=== PATIENT | female | born 1995 | race Caucasian/White ===

== ENCOUNTER 2022-11-03 13:39 | Emergency (ER) | payer OTHER ==
[2022-11-03 14:15] LABS: Absolute Neutrophil Ct (ANC) 5.36 x10^3/uL (1.4-6.9); BASOPHIL % 0.7 % (0.0-0.4); Basophil (Absolute #) 0.06 x10^3/uL (0-0.4); Eosinophil % 1.8 % (0.00-5.0); Eosinophil (Absolute #) 0.15 x10^3/uL (0-0.5); Hematocrit 34.5 % (35-47); Hemoglobin 11.2 g/dL (12.0-16.0); IMMATURE GRAN # 0.02 x10^3u/L (0.00-0.03); IMMATURE GRAN % 0.2 % (0.00-0.4); Lymphocytes % 25.6 % (24.0-44.0); Mean Cell Volume 85.4 fL (78-100); Mean Corpuscular Hemoglobin 27.7 pg (26-32); Mean Corpuscular Hgb Concent. 32.5 g/dL (32-36); Mean Platelet Volume 9.5 fL (7.5-11.0); Monocyte (Absolute #) 0.52 x10^3/uL (0.0-1.3); Monocytes % 6.3 % (0.0-12.0); Neutrophil % 65.4 % (36.0-66.0); Platelet Count 183 x10^3/uL (150-450); Red Blood Count 4.04 x10^6/uL (4.1-5.4); White Blood Count 8.2 x10^3/uL (4.0-10.5)
--- NOTE | 2022-11-03 14:36 | ERPHSYRPT ---
- History of Present Illness Time Seen by Provider: 11/03/22 14:05 Source: patient Exam Limitations: no limitations Patient Subjective Stated Complaint: -bleeding Triage Nursing Assessment: Patient ambulated back to ED and transferred self to bed. Patient A+O X3. Patient's skin pink, warm and dry. Patient states she is pregant, but unknown how far along. Last period was 09/15/2022. Patient states she was sitting on couch when she felt a "gush" and she stood up and noted her pants had bled through. Patient states she was having lower pelvic cramps. Physician History: Patient is a 26-year-old 2 para 1 AB 0 who presents for the last first menstrual period of September 15, 2022. She was sitting at home at approximately 7 weeks gestation when she felt a gush of blood and developed some lower abdominal cramping and nausea. She reports she has used 2 pads and she is bleeding like a period. Timing/Duration: today Activites at Onset: none Quality: cramping Onset Location: suprapubic Pain Radiation: none Severity of Pain-Max: moderate Severity of Pain-Current: mild Prior abdominal problems: none Sexual intercourse history: non-contributory Associated Symptoms: abdominal pain Allergies/Adverse Reactions: cefaclor [From [facility]] Allergy (Verified 11/03/22 13:48) Home Medications: Sertraline HCl 50 mg [Zoloft 50 mg Tablet] 1 tab PO DAILY 11/03/22 [History] Hx Influenza Vaccination/Date Given: No Hx Pneumococcal Vaccination/Date Given: No Travel Risk - International Travel Have you traveled outside of the country in past 3 weeks: No - Coronavirus Screening Are you exhibiting any of the following symptoms?: No Close contact with a COVID-19 positive Pt in past 14-21 Days: No - Vaccine Status Have you recieved a Covid-19 vaccination: No - Review of Systems Constitutional: No Fever, No Chills Eyes: No Symptoms Ears, Nose, & Throat: No Symptoms Respiratory: No Cough, No Dyspnea Cardiac: No Chest Pain, No Edema, No Syncope Abdominal/Gastrointestinal: Abdominal Pain, No Nausea, No Vomiting, No Diarrhea Genitourinary Symptoms: , Vaginal Bleeding, No Dysuria Musculoskeletal: No Back Pain, No Neck Pain Skin: No Rash Neurological: No Dizziness, No Focal Weakness, No Sensory Changes Psychological: No Symptoms Endocrine: No Symptoms All Other Systems: Reviewed and Negative - Past Medical History Pertinent Past Medical History: Yes Neurological History: No Pertinent History ENT History: No Pertinent History Cardiac History: No Pertinent History Respiratory History: No Pertinent History Endocrine Medical History: No Pertinent History Musculoskeletal History: No Pertinent History GI Medical History: No Pertinent History History: No Pertinent History Psycho-Social History: No Pertinent History Female Reproductive Disorders: No Pertinent History - Past Surgical History Past Surgical History: Yes Neuro Surgical History: No Pertinent History Cardiac: No Pertinent History Respiratory: No Pertinent History Gastrointestinal: No Pertinent History Genitourinary: No Pertinent History Musculoskeletal: No Pertinent History Female Surgical History: No Pertinent History - Social History Smoking Status: Never smoker Exposure to second hand smoke: No Drug Use: none Patient Lives Alone: No - Female History Hx Last Menstrual Period: 09/15/2022 Hx Now: Yes Gestational Age: na - Nursing Vital Signs Nursing Vital Signs: Initial Vital Signs Temperature 98.0 F 11/03/22 13:53 Pulse Rate 88 11/03/22 13:53 Respiratory Rate 18 11/03/22 13:53 Blood Pressure 107/72 11/03/22 13:53 O2 Sat by Pulse Oximetry 99 11/03/22 13:53 Pain Scale Pain Intensity 0 - Physical Exam General Appearance: mild distress, alert Eye Exam: PERRL/EOMI, eyes nml inspection Ears, Nose, Throat Exam: normal ENT inspection, TMs normal, pharynx normal, moist mucous membranes Neck Exam: normal inspection, non-tender, supple, full range of motion Respiratory Exam: normal breath sounds, lungs clear, No respiratory distress Cardiovascular Exam: regular rate/rhythm, normal heart sounds, normal peripheral pulses Gastrointestinal/Abdomen Exam: soft, No tenderness, No mass Pelvic Exam: normal external exam, adnexal tenderness, vaginal bleeding, uterine tenderness, No adnexal mass Back Exam: normal inspection, normal range of motion, No CVA tenderness, No vertebral tenderness Extremity Exam: normal inspection, normal range of motion, pelvis stable Neurologic Exam: alert, oriented x 3, cooperative, boat finisher II-XII nml as tested, normal mood/affect, sensation nml, No motor deficits Skin Exam: normal color, warm, dry Lymphatic Exam: No adenopathy SpO2 Interpretation: normal SpO2: 99 O2 Delivery: Room Air - Course Nursing assessment & vital signs reviewed: Yes - Radiology Ultrasound Exam OB Ultrasound: discussed w/radiologist (Ultrasound shows a subchorionic hemorrhage 6 weeks gestation and viable intrauterine ) Ordered Tests: Active Orders 24 hr Category Date Time Status OB <14 WKS 1ST GESTATION [US] Stat Exams 11/03/22 15:34 Ordered CBC W DIFF Stat Lab 11/03/22 14:10 Completed CULTURE,URINE Stat Lab 11/03/22 14:27 Received HCG, Quantitative (Inhouse) Stat Lab 11/03/22 14:10 Completed UA W/RFX UR CULTURE Stat Lab 11/03/22 14:27 Completed Lab/Rad Data: Laboratory Result Diagrams 11/03/22 14:10 Laboratory Results 11/03/22 11/03/22 11/03/22 Range/Units 14:27 14:10 14:10 WBC 8.2 (4.0-10.5) x10^3/uL RBC 4.04 L (4.1-5.4) x10^6/uL Hgb 11.2 L (12.0-16.0) g/dL Hct 34.5 L (35-47) % MCV 85.4 (78-100) fL MCH 27.7 (26-32) pg MCHC 32.5 (32-36) g/dL RDW 13.0 (11.5-14.0) % Plt Count 183 (150-450) x10^3/uL MPV 9.5 (7.5-11.0) fL Gran % 65.4 (36.0-66.0) % Immature Gran % (Auto) 0.2 (0.00-0.4) % Nucleat RBC Rel Count 0.0 (0.00-0.1) % Eos # (Auto) 0.15 (0-0.5) x10^3/uL Immature Gran # (Auto) 0.02 (0.00-0.03) x10^3u/L Absolute Lymphs (auto) 2.10 (1.0-4.6) x10^3/uL Absolute Monos (auto) 0.52 (0.0-1.3) x10^3/uL Absolute Nucleated RBC 0.00 (0.00-0.01) x10^3u/L Lymphocytes % 25.6 (24.0-44.0) % Monocytes % 6.3 (0.0-12.0) % Eosinophils % 1.8 (0.00-5.0) % Basophils % 0.7 (0.0-0.4) % Absolute Granulocytes 5.36 (1.4-6.9) x10^3/uL Basophils # 0.06 (0-0.4) x10^3/uL Beta HCG, Quant mIU/ml Urine Color Yellow (Yellow) Urine Appearance Clear (Clear) Urine pH 6.0 (4.6-8.0) Ur Specific Reese >=1.030 A (1.005-1.030) Urine Protein Trace A (Negative) Urine Glucose (UA) Negative (Negative) mg/dL Urine Ketones Negative (Negative) Urine Blood Large A (Negative) Urine Nitrite Negative (Negative) Urine Bilirubin Negative (Negative) Urine Urobilinogen 0.2 (0.2) mg/dL Ur Leukocyte Esterase Small A (Negative) U Hyaline Cast (Auto) NONE SEEN (0-2) /LPF Urine Microscopic RBC >100 A (0-5) /HPF Urine Microscopic WBC 21-50 A (0-5) /HPF Ur Epithelial Cells Rare (None Seen) /HPF Urine Bacteria None Seen (None Seen) /HPF Urine Culture Reflexed YES (NO) Rh Factor POSITIVE 11/03/22 Range/Units 14:10 WBC (4.0-10.5) x10^3/uL RBC (4.1-5.4) x10^6/uL Hgb (12.0-16.0) g/dL Hct (35-47) % MCV (78-100) fL MCH (26-32) pg MCHC (32-36) g/dL RDW (11.5-14.0) % Plt Count (150-450) x10^3/uL MPV (7.5-11.0) fL Gran % (36.0-66.0) % Immature Gran % (Auto) (0.00-0.4) % Nucleat RBC Rel Count (0.00-0.1) % Eos # (Auto) (0-0.5) x10^3/uL Immature Gran # (Auto) (0.00-0.03) x10^3u/L Absolute Lymphs (auto) (1.0-4.6) x10^3/uL Absolute Monos (auto) (0.0-1.3) x10^3/uL Absolute Nucleated RBC (0.00-0.01) x10^3u/L Lymphocytes % (24.0-44.0) % Monocytes % (0.0-12.0) % Eosinophils % (0.00-5.0) % Basophils % (0.0-0.4) % Absolute Granulocytes (1.4-6.9) x10^3/uL Basophils # (0-0.4) x10^3/uL Beta HCG, Quant 95391 mIU/ml Urine Color (Yellow) Urine Appearance (Clear) Urine pH (4.6-8.0) Ur Specific Reese (1.005-1.030) Urine Protein (Negative) Urine Glucose (UA) (Negative) mg/dL Urine Ketones (Negative) Urine Blood (Negative) Urine Nitrite (Negative) Urine Bilirubin (Negative) Urine Urobilinogen (0.2) mg/dL Ur Leukocyte Esterase (Negative) U Hyaline Cast (Auto) (0-2) /LPF Urine Microscopic RBC (0-5) /HPF Urine Microscopic WBC (0-5) /HPF Ur Epithelial Cells (None Seen) /HPF Urine Bacteria (None Seen) /HPF Urine Culture Reflexed (NO) Rh Factor - Progress Progress: unchanged Air Movement: good Blood Culture(s) Obtained: No Antibiotics given: No Medical Desision Making - Discussion of managment Reviewed:: Test results (Test results were discussed with the patient and her ) - Diagnostic Testing Diagnostic test were ordered, analyzed, and reviewed by me: Yes Radiological Interpretation: Discussed w/ radiologist - Risk of complications Low Risk: Low risk of morbidity from additional dx testing or treatment - Departure Departure Disposition: Home Clinical Impression: Subchorionic hemorrhage in first trimester Condition: Stable Critical Care Time: No Referrals: KAE ALBARRAN MD [ACTIVE STAFF] - Follow up/PCP as directed Instructions: Bleeding in Early (DC)
[2022-11-03 14:43] LABS: Appearance Clear (Clear); Bilirubin Negative (Negative); Blood Large (Negative); Glucose, Urine Negative (Negative); Ketones Negative (Negative); Leukocyte Esterase Small (Negative); Nitrite Negative (Negative); Protein,Urine Dip Trace (Negative); Specific Gravity >=1.030 (1.005-1.030); Urobilinogen 0.2 mg/dL (0.2)
[2022-11-03 14:46] LABS: ADD URINE CULTURE? YES (NO); Bacteria None Seen /HPF (None Seen); Epithelial Cells Rare /HPF (None Seen); Hyaline Casts NONE SEEN /LPF (0-2); RBC >100 /HPF (0-5); WBC 21-50 /HPF (0-5)
[2022-11-03 18:00] VITALS: BP 98/60; PULSE 74; O2SAT 98
--- NOTE | 2022-11-03 19:50 | XRAY ---
Indication: Vaginal bleeding. Two-dimensional transabdominal and transvaginal early OB ultrasound performed. Comparison: None Single intrauterine gestational sac with presence of a single pole and yolk sac. Mean crown-rump length measures 0.35 cm corresponding to 6 weeks 0 days. heart rate 118 BPM. 4.0 x 2.8 x 3.6 cm subchorionic heterogeneous echogenicity, probable blood products. Cervix is closed. Left and right ovaries are sonographically unremarkable. No suspicious adnexal mass or free fluid. Impression: Single viable intrauterine measuring 6 weeks 0 days. Expected date of confinement is June 29, 2023. Heterogeneous subchorionic echogenicity as detailed, probable blood products. Comment: Preliminary report was given.
== END 2022-11-03 18:00 | disposition home or self-care (01) ==
LOC: ED 13:39
DX: O46.8X1 Other antepartum hemorrhage, first trimester (principal); Z3A.01 Less than 8 weeks gestation of pregnancy; R10.2 Pelvic and perineal pain; Z79.899 Other long term (current) drug therapy; Z28.310 Unvaccinated for COVID-19
CPT/HCPCS: 36415; 76801; 81001; 84702; 85025; 86901; 87086; 99283

== ENCOUNTER 2023-03-04 11:46 | Emergency (ER) | payer OTHER ==
--- NOTE | 2023-03-04 12:16 | ERPHSYRPT ---
- History of Present Illness Time Seen by Provider: 03/04/23 12:00 Source: patient Exam Limitations: no limitations Patient Subjective Stated Complaint: Pt states "I am and I have this vein in my right leg and it did it with my last as well, I have a vein that will swell and hurt after a day of work." Triage Nursing Assessment: Pt presented alert and oriented X 3, skin pwd. PT ambulates with an upright steady gait, able to speak in clear full sentences. Pt has swollen vein in her right leg. Physician History: Patient is a 27-year-old female 23 weeks presents to our ED as a referral from her [facility] physician for a ultrasound to rule out DVT of the right lower extremity. Patient states that she has a large varicose vein in the right lower extremity that tends to swell during long days at work. Patient states she is on her feet on concrete surface during most of the day while working and after work observes that the vein is swollen and tender. Patient had similar experience during her last . Patient states she wears compressive garment upper lower extremity but still experiences this large varicose vein. Patient voiced her finding and concerns to Dr. Pickering who sent patient to our ED for an evaluation and to rule out DVT. Patient otherwise feels well. No chest pain or shortness of breath. No nausea vomiting or diaphoresis. Symptoms are mild to moderate in intensity. Symptoms are worse during prolonged periods of standing. Symptoms improved at rest while laying flat. Patient is otherwise healthy. She voices no other complaints or concerns at this time. Portions of this note were created with voice recognition technology. There may be grammatical, spelling, punctuation or sound alike errors Timing/Duration: yesterday Severity: moderate Modifying Factors: Improves With: nothing Associated Symptoms: denies symptoms Allergies/Adverse Reactions: cefaclor [From [facility]] Allergy (Verified 11/03/22 13:48) Home Medications: Vit37/Iron/Folic Acid [Prenata Chewable Tablet] 1 each PO DAILY 03/04/23 [History] Sertraline HCl 50 mg [Zoloft 50 mg Tablet] 50 mg PO DAILY 03/04/23 [History] Hx Tetanus, Diphtheria Vaccination/Date Given: No Hx Influenza Vaccination/Date Given: No Hx Pneumococcal Vaccination/Date Given: No Immunizations Up to Date: Yes Travel Risk - International Travel Have you traveled outside of the country in past 3 weeks: No - Coronavirus Screening Are you exhibiting any of the following symptoms?: No Close contact with a COVID-19 positive Pt in past 14-21 Days: No - Vaccine Status Have you recieved a Covid-19 vaccination: No - Review of Systems Constitutional: No Symptoms, No Fever, No Chills Eyes: No Symptoms Ears, Nose, & Throat: No Symptoms Respiratory: No Symptoms, No Cough, No Dyspnea Cardiac: No Symptoms, No Chest Pain, No Edema, No Syncope Abdominal/Gastrointestinal: No Symptoms, No Abdominal Pain, No Nausea, No Vomiting, No Diarrhea Genitourinary Symptoms: No Symptoms, No Dysuria Musculoskeletal: No Symptoms, No Back Pain, No Neck Pain Skin: No Symptoms, No Rash Neurological: No Symptoms, No Dizziness, No Focal Weakness, No Sensory Changes Psychological: No Symptoms Endocrine: No Symptoms Hematologic/Lymphatic: No Symptoms Immunological/Allergic: No Symptoms All Other Systems: Reviewed and Negative - Past Medical History Pertinent Past Medical History: Yes Neurological History: No Pertinent History ENT History: No Pertinent History Cardiac History: No Pertinent History Respiratory History: No Pertinent History Endocrine Medical History: No Pertinent History Musculoskeletal History: No Pertinent History GI Medical History: No Pertinent History History: No Pertinent History Psycho-Social History: No Pertinent History Female Reproductive Disorders: No Pertinent History - Past Surgical History Past Surgical History: Yes Neuro Surgical History: No Pertinent History Cardiac: No Pertinent History Respiratory: No Pertinent History Gastrointestinal: No Pertinent History Genitourinary: No Pertinent History Musculoskeletal: No Pertinent History Female Surgical History: No Pertinent History - Social History Smoking Status: Never smoker Exposure to second hand smoke: No Drug Use: none Patient Lives Alone: No - Female History Hx Last Menstrual Period: 10/16/2022 Hx Now: Yes Gestational Age: 23 W 2 d - Nursing Vital Signs Nursing Vital Signs: Initial Vital Signs Temperature 98.4 F 03/04/23 11:54 Pulse Rate 79 03/04/23 11:54 Respiratory Rate 20 03/04/23 11:54 Blood Pressure 100/60 03/04/23 11:54 O2 Sat by Pulse Oximetry 100 03/04/23 11:54 Pain Scale Pain Intensity 0 - Physical Exam General Appearance: no apparent distress, alert Eye Exam: PERRL/EOMI, eyes nml inspection Ears, Nose, Throat Exam: normal ENT inspection, TMs normal, pharynx normal, moist mucous membranes Neck Exam: normal inspection, non-tender, supple, full range of motion Respiratory Exam: normal breath sounds, lungs clear, airway intact, No respiratory distress Cardiovascular Exam: regular rate/rhythm, normal heart sounds, normal peripheral pulses Gastrointestinal/Abdomen Exam: soft, normal bowel sounds, No tenderness, No mass Back Exam: normal inspection, normal range of motion, No CVA tenderness, No vertebral tenderness Extremity Exam: normal inspection, normal range of motion, pelvis stable Neurologic Exam: alert, oriented x 3, cooperative, normal mood/affect, nml cerebellar function, nml station & gait, sensation nml, No motor deficits Skin Exam: normal color, warm, dry, No rash Lymphatic Exam: No adenopathy SpO2: 100 - Course Nursing assessment & vital signs reviewed: Yes - Radiology Ultrasound Exam Venous Lower Extremity Ultrasound: tele radiology report (Negative for DVT) Ordered Tests: Active Orders 24 hr Category Date Time Status VENOUS UNILAT/LIMITED EXTREMIT [US] Stat Exams 03/04/23 12:09 Completed - Progress Progress: unchanged, improved Progress Note: Patient a 27-year-old female presents to our ED as a referral from her [facility] physician for an ultrasound to rule out DVT of the right lower extremity. Patient advised that she has been experiencing a varicose vein that enlarges when she stands for prolonged periods of time. Physical exam reveals a varicose vein of the right lower extremity proximal and medial. Some tenderness more so when the pain becomes congested. Ultrasound of the right lower extremity negative for DVT. We contacted patient's referring doctor and informed them that ultrasound of the right lower extremity was negative for DVT. No indication for further work-up. Will discharge home. Patient agrees to follow-up with her primary care doctor for reevaluation. Complexity of problem addressed is low acute uncomplicated Complex of data reviewed and analyzed is limited. Dr. Cosby reviewed the ultrasound report produced by radiology. No DVT observed per radiology report Risk of complication and or risk morbidity/mortality of patient management is minimal. Patient received an ultrasound only. Patient declined pain medication. No indication for further work-up. Portions of this note were created with voice recognition technology. There may be grammatical, spelling, punctuation or sound alike errors Time spent to discharge patient is approximately 15 minutes including phone call to her referring doctor. Vital stable. Plan of care established via shared decision making. She voices no other complaints or concerns at this time. Portions of this note were created with voice recognition technology. There may be grammatical, spelling, punctuation or sound alike errors 03/04/23 13:47 Counseled pt/family regarding: diagnosis, need for follow-up, rad results - Departure Departure Disposition: Home Clinical Impression: Varicose vein of leg, Venous insufficiency Condition: Stable Critical Care Time: No Referrals: MANA PICKERING DO [ACTIVE STAFF] - Follow up/PCP as directed Additional Instructions: Discharge/Care Plan SURESH HERNANDEZ was seen on 03/04/23 in the Emergency Room. The patient was counseled regarding Diagnosis,Lab results, Imaging studies, need for follow up and when to return to the Emergency Room. Prescriptions given: Discharge Note I have spoken with the patient and/or caregivers. I have explained the patient's condition, diagnosis and treatment plan based on the information available to me at this time. I have answered the patient's and/or caregiver's questions and addressed any concerns. The patient and/or caregivers have as good understanding of the patient's diagnosis, condition and treatment plan as can be expected at this point. The vital signs have been stable. The patient's condition is stable and appropriate for discharge from the emergency department. The patient will pursue further outpatient evaluation with the primary care physician or other designated or consulting physician as outlined in the discharge instructions. The patient and/or caregivers are agreeable to this plan of care and follow-up instructions have been explained in detail. The patient and/or caregivers have received these instruction. The patient/and or caregivers are aware that any significant change in condition or worsening of symptoms should prompt an immediate return to this or the closest emergency department or call 911.
--- NOTE | 2023-03-04 12:52 | XRAY ---
Indication: Pain. DVT. Two-dimensional sonogram and color Doppler imaging of the major venous vessels of the right leg performed. Comparison: None No thrombus seen in the examined deep venous vessels of the right leg including greater saphenous vein. Veins demonstrate normal compressibility. Venous waveforms are normal with and without augmentation. Incidental mild subcutaneous venous varicosities throughout the right leg. Impression: Right leg negative for DVT. Incidental subcutaneous venous varicosities.
[2023-03-04 12:56] VITALS: BP 104/60; PULSE 74
[2023-03-04 13:52] VITALS: O2SAT 100
== END 2023-03-04 14:06 | disposition home or self-care (01) ==
LOC: ED 11:46
DX: O22.02 Varicose veins of lower extremity in pregnancy, second trimester (principal); Z3A.23 23 weeks gestation of pregnancy; I87.2 Venous insufficiency (chronic) (peripheral); Z79.899 Other long term (current) drug therapy; Z28.310 Unvaccinated for COVID-19
CPT/HCPCS: 93971; 99282

== ENCOUNTER 2023-06-24 01:18 | Inpatient (IN) | payer OTHER ==
[2023-06-24] MEDS ORDERED: BRETHINE 1 MG/ML SQ PRN (16:00)
[2023-06-24] MEDS ORDERED: STADOL 2 MG IV PRN (16:00)
[2023-06-24] MEDS ORDERED: Zofran 4 MG/2 ML VIAL IV PRN (16:00)
[2023-06-24 16:52] LABS: Absolute Neutrophil Ct (ANC) 8.74 x10^3/uL (1.4-6.9); BASOPHIL % 0.3 % (0.0-0.4); Basophil (Absolute #) 0.03 x10^3/uL (0-0.4); Eosinophil % 0.5 % (0.00-5.0); Eosinophil (Absolute #) 0.06 x10^3/uL (0-0.5); Hematocrit 24.7 % (35-47); Hemoglobin 7.8 g/dL (12.0-16.0); IMMATURE GRAN # 0.05 x10^3u/L (0.00-0.03); IMMATURE GRAN % 0.4 % (0.00-0.4); Lymphocyte (Absolute #) 1.93 x10^3/uL (1.0-4.6); Mean Cell Volume 77.9 fL (78-100); Mean Corpuscular Hemoglobin 24.6 pg (26-32); Mean Corpuscular Hgb Concent. 31.6 g/dL (32-36); Mean Platelet Volume 10.4 fL (7.5-11.0); Monocyte (Absolute #) 0.53 x10^3/uL (0.0-1.3); Monocytes % 4.7 % (0.0-12.0); Neutrophil % 77.1 % (36.0-66.0); Platelet Count 201 x10^3/uL (150-450); Red Blood Count 3.17 x10^6/uL (4.1-5.4); Red Cell Distribution Width 14.6 % (11.5-14.0); White Blood Count 11.3 x10^3/uL (4.0-10.5)
[2023-06-24] MEDS: CYTOTEC PO SCH ×3 (16:59→23:20)
[2023-06-24 18:55] LABS: ABO TYPING O; Antibody Screen NEGATIVE (NEGATIVE); RH TYPING POSITIVE
[2023-06-24 19:09] LABS: Amphetamine,Urine NEGATIVE (NEGATIVE); Barbiturate,Urine NEGATIVE (NEGATIVE); Benzodiazepine,Urine NEGATIVE (NEGATIVE); Cocaine,Urine NEGATIVE (NEGATIVE); Methadone,Urine NEGATIVE (NEGATIVE); Opiate,Urine NEGATIVE (NEGATIVE); PCP,Urine NEGATIVE (NEGATIVE); THC,Urine POSITIVE (NEGATIVE)
[2023-06-25] MEDS ORDERED: Lactated Ringers 2,000 ML IV ONE (01:20)
[2023-06-25] MEDS ORDERED: FENTANYL 2 MCG-BUPIV 0.125%-NS 250 ML Epidur 250 ML EPIDURAL ONE (01:48)
[2023-06-25] MEDS ORDERED: Lactated Ringers 1,000 ML IV ONE (06:00)
[2023-06-25] MEDS ORDERED: FENTANYL 2 MCG-BUPIV 0.125%-NS 250 ML Epidur 250 ML EPIDURAL SCH (06:00)
[2023-06-25] MEDS ORDERED: PITOCIN 30 UNITS/ LR 500 ML 30 UNITS/500 ML PLAST..BAG IV SCH ×2 (06:00)
[2023-06-25] MEDS ORDERED: Ephedrine Sulfate 50 MG/ML IV PRN (06:00)
[2023-06-25] MEDS ORDERED: Lactated Ringers 1,000 ML IV SCH (06:00)
[2023-06-25] MEDS: TYLENOL EXTRA STRENGTH 500 MG PO PRN (11:22)
[2023-06-25] MEDS ORDERED: Adacel Vial IM ONE (12:00)
[2023-06-25] MEDS ORDERED: Mylicon 80MG PO PRN (12:00)
[2023-06-25] MEDS ORDERED: TUCKS TP PRN (12:00)
[2023-06-25] MEDS ORDERED: LANSINOH 40 GM TOP PRN (12:00)
[2023-06-25] MEDS ORDERED: Dermoplast Spray TP PRN (12:00)
[2023-06-25] MEDS ORDERED: TYLENOL EXTRA STRENGTH 500 MG PO PRN (12:00)
[2023-06-25] MEDS ORDERED: Sodium Chloride 0.9% 1000 ML 1,000 ML ONE (12:29)
[2023-06-25] MEDS ORDERED: CLARITIN 10 MG PO PRN (14:48)
[2023-06-25] MEDS ORDERED: BENADRYL 50 MG/ML IV PRN (14:48)
[2023-06-25] MEDS ORDERED: Nubain 10 MG/ML IV PRN (14:48)
[2023-06-25] MEDS ORDERED: HOLD NARCOTIC ANALGESICS AND SEDATIVES X24 HR MC PRN (14:48)
[2023-06-25] MEDS ORDERED: DEMEROL 50 MG IV PRN (14:48)
[2023-06-25] MEDS ORDERED: PERCOCET TABLET 5/325MG PO PRN (14:48)
[2023-06-25] MEDS ORDERED: Dextrose 5%-Lr IV Solution 1000 ML 1,000 ML IV SCH (15:00)
[2023-06-25] MEDS ORDERED: CLINDAMYCIN-D5W 900 MG/50 ML*** 900 MG/50 ML BAG IV SCH (15:00)
[2023-06-25] MEDS ORDERED: Zithromax 500 MG/ 250 ML NaCl Premix 500 MG/250 ML IVPB IV SCH (15:00)
[2023-06-25] MEDS ORDERED: Reglan 10 MG/2 ML IV SCH (15:00)
[2023-06-25] MEDS ORDERED: Pepcid 20 MG VIAL IV SCH (15:00)
[2023-06-25] MEDS ORDERED: SOD CITRATE-CITRIC ACID SOLN PO SCH (15:00)
[2023-06-25] MEDS ORDERED: EXPAREL 133 MG/10 ML VIAL IJ ONE (15:07)
[2023-06-25 15:16] LABS: INR 0.92 (0.8-3.0); PROTIME 10.1 SECONDS (9.4-12.5)
[2023-06-25] MEDS ORDERED: CEFAZOLIN 2 GM-D5W BAG** 2 GM/50 ML ML IV SCH (15:30)
[2023-06-25] MEDS: Docusate Sodium 100 MG PO SCH ×2 (20:58→23:54)
[2023-06-25 21:02] LABS: Absolute Neutrophil Ct (ANC) 12.34 x10^3/uL (1.4-6.9); BASOPHIL % 0.3 % (0.0-0.4); Basophil (Absolute #) 0.05 x10^3/uL (0-0.4); Eosinophil % 0.1 % (0.00-5.0); Eosinophil (Absolute #) 0.02 x10^3/uL (0-0.5); Hematocrit 24.9 % (35-47); Hemoglobin 7.5 g/dL (12.0-16.0); IMMATURE GRAN # 0.07 x10^3u/L (0.00-0.03); IMMATURE GRAN % 0.5 % (0.00-0.4); Lymphocyte (Absolute #) 1.32 x10^3/uL (1.0-4.6); Lymphocytes % 9.2 % (24.0-44.0); Mean Cell Volume 80.3 fL (78-100); Mean Corpuscular Hemoglobin 24.2 pg (26-32); Mean Corpuscular Hgb Concent. 30.1 g/dL (32-36); Mean Platelet Volume 10.1 fL (7.5-11.0); Monocyte (Absolute #) 0.52 x10^3/uL (0.0-1.3); Monocytes % 3.6 % (0.0-12.0); Neutrophil % 86.3 % (36.0-66.0); Platelet Count 178 x10^3/uL (150-450); Red Cell Distribution Width 14.9 % (11.5-14.0); White Blood Count 14.3 x10^3/uL (4.0-10.5)
[2023-06-25] MEDS: MOTRIN 400 MG PO PRN (23:47)
[2023-06-26] MEDS: TYLENOL EXTRA STRENGTH 500 MG PO PRN ×2 (02:49→19:55)
[2023-06-26 04:43] LABS: Absolute Neutrophil Ct (ANC) 10.04 x10^3/uL (1.4-6.9); BASOPHIL % 0.4 % (0.0-0.4); Basophil (Absolute #) 0.05 x10^3/uL (0-0.4); Eosinophil % 0.8 % (0.00-5.0); Hematocrit 24.1 % (35-47); Hemoglobin 7.4 g/dL (12.0-16.0); IMMATURE GRAN # 0.08 x10^3u/L (0.00-0.03); IMMATURE GRAN % 0.6 % (0.00-0.4); Lymphocyte (Absolute #) 2.15 x10^3/uL (1.0-4.6); Lymphocytes % 16.2 % (24.0-44.0); Mean Cell Volume 78.2 fL (78-100); Mean Corpuscular Hgb Concent. 30.7 g/dL (32-36); Mean Platelet Volume 10.3 fL (7.5-11.0); Monocyte (Absolute #) 0.86 x10^3/uL (0.0-1.3); Monocytes % 6.5 % (0.0-12.0); Neutrophil % 75.5 % (36.0-66.0); Platelet Count 191 x10^3/uL (150-450); Red Blood Count 3.08 x10^6/uL (4.1-5.4); Red Cell Distribution Width 15.1 % (11.5-14.0); White Blood Count 13.3 x10^3/uL (4.0-10.5)
[2023-06-26] MEDS: MOTRIN 400 MG PO PRN ×2 (06:31→20:48)
--- NOTE | 2023-06-26 08:22 | PCM.NOTE ---
Date and Time: 06/26/23819 Subjective Assessment: ppd 1 sp pt resting in bed doing well able to ambulate and tolerate diet. vss afebrile abd; soft uterus; firm lochia; mild hgb;7.3 a/p sp ppd 1 with physiologic anemia stable hgb anticipate discharge tomorrow OBJECTIVE DATA Vital Signs: Vital Signs - 24 hr Temp Pulse Resp BP BP Pulse Ox 06/26/23 05:00 98.4 F 67 16 90/54 98 06/25/23 21:00 98.7 F 85 16 103/63 97 06/25/23 19:00 97.9 F 60 18 102/61 99 06/25/23 17:15 98.0 F 78 16 112/57 98 06/25/23 17:00 98.0 F 78 16 107/55 98 06/25/23 13:30 67 16 120/66 98 06/25/23 13:15 71 16 116/65 97 06/25/23 13:00 71 16 116/65 97 06/25/23 12:45 71 16 116/65 97 06/25/23 12:30 71 16 111/61 97 06/25/23 12:15 71 16 96/62 97 06/25/23 12:00 98.0 F 74 16 96/62 97 06/25/23 11:00 97.7 F 72 16 104/55 06/25/23 10:30 74 16 06/25/23 10:15 75 16 104/55 06/25/23 10:00 98.0 F 69 16 100 06/25/23 09:45 70 16 106/56 06/25/23 09:30 71 16 109/58 06/25/23 09:15 66 16 109/58 100 06/25/23 09:00 64 16 90/52 99 06/25/23 08:45 63 16 90/52 99 06/25/23 08:30 62 16 90/52 98 Pain Assessment - Last Documented Pain Intensity [Lower] 0 Pain Intensity 6 Pain Scale Used 0-10 Pain Scale Intake and Output: Intake & Output 06/23/23 06/24/23 06/25/23 06/26/23 11:59 11:59 11:59 11:59 Intake Total 2150 800 Output Total 400 Balance 1750 800 Weight 87.09 kg Lab Results: Lab Results-Last 24 Hours 06/25/23 06/25/23 06/26/23 Range/Units 21:00 Unknown 04:23 WBC 14.3 H 13.3 H (4.0-10.5) x10^3/uL RBC 3.10 L 3.08 L (4.1-5.4) x10^6/uL Hgb 7.5 L 7.4 L (12.0-16.0) g/dL Hct 24.9 L 24.1 L (35-47) % MCV 80.3 78.2 (78-100) fL MCH 24.2 L 24.0 L (26-32) pg MCHC 30.1 L 30.7 L (32-36) g/dL RDW 14.9 H 15.1 H (11.5-14.0) % Plt Count 178 191 (150-450) x10^3/uL MPV 10.1 10.3 (7.5-11.0) fL Gran % 86.3 H 75.5 H (36.0-66.0) % Immature Gran % (Auto) 0.5 H 0.6 H (0.00-0.4) % Nucleat RBC Rel Count 0.0 0.0 (0.00-0.1) % Eos # (Auto) 0.02 0.10 (0-0.5) x10^3/uL Immature Gran # (Auto) 0.07 H 0.08 H (0.00-0.03) x10^3u/L Absolute Lymphs (auto) 1.32 2.15 (1.0-4.6) x10^3/uL Absolute Monos (auto) 0.52 0.86 (0.0-1.3) x10^3/uL Absolute Nucleated RBC 0.00 0.00 (0.00-0.01) x10^3u/L Lymphocytes % 9.2 L 16.2 L (24.0-44.0) % Monocytes % 3.6 6.5 (0.0-12.0) % Eosinophils % 0.1 0.8 (0.00-5.0) % Basophils % 0.3 0.4 (0.0-0.4) % Absolute Granulocytes 12.34 H 10.04 H (1.4-6.9) x10^3/uL Basophils # 0.05 0.05 (0-0.4) x10^3/uL PT 10.1 (9.4-12.5) SECONDS INR 0.92 (0.8-3.0) APTT 27.0 (25.1-36.5) SECONDS Assessment/Plan (1) Vaginal delivery Current Visit: Yes Status: Acute Code(s): O80 - ENCOUNTER FOR FULL-TERM UNCOMPLICATED DELIVERY (2) Anemia Current Visit: Yes Status: Acute Code(s): D64.9 - ANEMIA, UNSPECIFIED
[2023-06-26] MEDS: FERREX 150 PO SCH (09:16)
[2023-06-26] MEDS: Docusate Sodium 100 MG PO SCH ×2 (09:17→20:48)
[2023-06-26] MEDS ORDERED: CORTISONE 1% CREAM TP PRN (10:50)
[2023-06-26 14:19] VITALS: RESP 18
[2023-06-26] MEDS ORDERED: NORCO 5/325 MG PO PRN (14:48)
[2023-06-26] MEDS: ZOLOFT 50 MG TABLET PO SCH (20:48)
[2023-06-27] MEDS: TYLENOL EXTRA STRENGTH 500 MG PO PRN ×2 (01:45→10:43)
[2023-06-27 04:54] VITALS: TEMP 98.4
[2023-06-27] MEDS: MOTRIN 400 MG PO PRN (04:58)
--- NOTE | 2023-06-27 07:50 | PCM.NOTE ---
Date and Time: 06/27/23 0749 Subjective Assessment: ppd 2 pt resting in bed and doing well vss afebrile abd; soft uterus; firm lochia; mild a/p sp ppd 2 dc home today should fu office in 3 wks OBJECTIVE DATA Vital Signs: Vital Signs - 24 hr Temp Pulse Resp BP Pulse Ox 06/27/23 02:00 98.4 F 66 18 107/63 97 06/26/23 20:00 98.6 F 70 18 110/54 98 06/26/23 15:00 98.5 F 74 18 101/59 98 06/26/23 09:00 98.4 F 75 18 96/56 99 Pain Assessment - Last Documented Pain Intensity [Lower] 0 Pain Intensity 2 Pain Scale Used 0-10 Pain Scale Intake and Output: Intake & Output 06/24/23 06/25/23 06/26/23 06/27/23 11:59 11:59 11:59 11:59 Intake Total 2150 800 1050 Output Total 400 Balance 6727 207 1319 Weight 87.09 kg Assessment/Plan (1) Vaginal delivery Current Visit: Yes Status: Acute Code(s): O80 - ENCOUNTER FOR FULL-TERM UNCOMPLICATED DELIVERY (2) Anemia Current Visit: Yes Status: Acute Code(s): D64.9 - ANEMIA, UNSPECIFIED
--- NOTE | 2023-06-27 07:53 | PCM.DS ---
Discharge Summary Date of Admission: 06/25/23 01:18 Admitting Physician: MANA KU DO Consults: Consults on Case 06/25/23 06:00 Notify Anesthesia Provider PRN 06/25/23 12:00 Notify Physician ROUTINE 06/25/23 14:49 Notify Anesthesia Provider ROUTINE 06/26/23 00:04 Navigation ONCE Primary Care Provider: CHELY MEYERS Allergies Allergies cefaclor [From Ceclor] Allergy (Verified 06/24/23 20:31) Hospital Summary - Hospital Course Hospital Course: pt admitted on jun 24 at 39 wks gestation for oral cytotec induction and subsequently delivered live baby girl via without complication on jun 25 live baby girl. during period did well able to ambulate and tolerate diet. at this time pt stable for discharge and was advised to fu in office in 2 wks for evaluation. pt noted having stable hgb at 7.3 prior to discharge and was advised to continue her iron supplementation to take twice daily upon discharge. all questions answered to her satisfaction. - Vitals & Intake/Output Vital Signs: Vital Signs Temperature 98.4 F 06/27/23 02:00 Pulse Rate 66 06/27/23 02:00 Respiratory Rate 18 06/27/23 02:00 Blood Pressure 107/63 06/27/23 02:00 O2 Sat by Pulse Oximetry 97 06/27/23 02:00 Intake & Output: Intake & Output 06/24/23 06/25/23 06/26/23 06/27/23 11:59 11:59 11:59 11:59 Intake Total 2150 800 1050 Output Total 400 Balance 2382 491 6718 Weight 87.09 kg - Lab Result Diagrams: 06/26/23 04:23 Final Diagnosis/Problem List - Final Discharge Diagnosis/Problem (1) Vaginal delivery Current Visit: Yes Status: Acute Code(s): O80 - ENCOUNTER FOR FULL-TERM UNCOMPLICATED DELIVERY (2) Anemia Current Visit: Yes Status: Acute Code(s): D64.9 - ANEMIA, UNSPECIFIED - Discharge Disposition: Home, Self-Care Condition: Stable Prescriptions: No Action Sertraline HCl 50 mg [Zoloft 50 mg Tablet] 50 mg PO DAILY Vit37/Iron/Folic Acid [Prenata Chewable Tablet] 1 each PO DAILY Docusate Sodium [Stool Softener] 1 tab PO DAILY Follow up with: CHELY MEYERS NP [Primary Care Provider] - MANA KU DO [ACTIVE STAFF] - 3 weeks (pt to continue taking her iron supplementation she already has at home twice daily should fu in office in 3 wks)
[2023-06-27 08:08] VITALS: BP 104/60; PULSE 65; O2SAT 96
[2023-06-27] MEDS: Docusate Sodium 100 MG PO SCH (10:40)
[2023-06-27] MEDS: ZOLOFT 50 MG TABLET PO SCH (10:52)
[2023-06-27] MEDS: FERREX 150 PO SCH (14:24)
== END 2023-06-27 13:20 | disposition home or self-care (01) | DRG 807 ==
LOC: OB 01:18 → OBSVTOIN 06-25 01:18
PROVIDERS: ADMIT Obstetrics & Gynecology; ATTEND Obstetrics & Gynecology
PROC: 10E0XZZ Delivery of Products of Conception, External Approach (ICD-10-PCS; principal; 2023-06-25)
DX: O80 Encounter for full-term uncomplicated delivery (principal); Z37.0 Single live birth; Z3A.39 39 weeks gestation of pregnancy; D64.9 Anemia, unspecified; Z20.828 Contact with and (suspected) exposure to other viral communicable diseases
CPT/HCPCS: 36415; 59409; 80307; 85025; 85610; 85730; 86850; 86900; 86901; 90471; 90715; G0378; G0379; J2405; J2590; A9270-GY